=== PATIENT | female | born 1970 | race Caucasian/White ===

== ENCOUNTER 2020-01-30 10:59 | Emergency (ER) | payer BC ==
[2020-01-30 11:28] LABS: Protime INR 1.23
--- NOTE | 2020-01-30 11:28 | RAD REPORT ---
EXAM DESCRIPTION: CT - Ct Stroke Brain Wo Cont - 01/30/2020 11:13 am CLINICAL HISTORY: WEAKNESS, acute onset Additional provided history indicated recent hospitalization for intracranial bleed. COMPARISON: No comparisons TECHNIQUE: Axial 5 millimeter thick images of the head were obtained without IV contrast. All CT scans are performed using dose optimization technique as appropriate and may include automated exposure control or mA/KV adjustment according to patient size. FINDINGS: No intracranial hemorrhage, mass, or cerebral edema. No acute infarction identifiable. No cortical edema or sulcal effacement. Ventricles are normal. Physiologic calcifications are present. G ray matter-white matter differentiation is preserved.No globe or orbital content abnormality. The additional provided history of recent intracranial bleed is uncertain. There is no remnant intrac ranial hemorrhage in the brain parenchyma or adjacent to dura. Visualized portions of the mastoid air cells, paranasal sinuses, and orbits are unremarkable. The examination was only initially available in the exception folder which precludes immediate dictat ion. Images were reviewed at that time and findings telephoned to the referring physician 11:06 a.m.. IMPRESSION: No CT evidence of acute intracranial process.
[2020-01-30 11:32] LABS: Absolute Lymphocytes (CBC) 5.2 K/uL (0.7-4.9); Basophils % 1.1 % (0-1.3); Hematocrit 33.4 % (36.0-45.0); Lymphocytes % 51.2 % (15.3-44.8); MPV 7.7 fL (7.6-11.3); RBC Red Blood Cell Count 3.94 M/uL (3.86-4.86)
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
[2020-01-30 11:53] LABS: ALT/SGPT 28 U/L (12-78); AST/SGOT 32 U/L (15-37); Albumin 2.5 g/dL (3.4-5.0); Alkaline Phosphatase 121 U/L (45-117); BUN Blood Urea Nitrogen 11 mg/dL (7-18); Bicarbonate 27 mmol/L (21-32); Bilirubin Direct 0.1 mg/dL (0-0.2); Bilirubin Total 0.4 mg/dL (0.2-1.0); Glucose Level 86 mg/dL (74-106); Potassium 4.4 mmol/L (3.5-5.1); Protein, Total 6.9 g/dL (6.4-8.2); Sodium Level 135 mmol/L (136-145); Troponin (Emerg Dept Use Only) < 0.02 ng/mL (0.0-0.045)
[2020-01-30 12:23] LABS: Anisocytosis SLIGHT; Blood Morphology Comment NOTED (NOT SEEN); Ovalocytes 1+; Platelet Estimate ADEQ
--- NOTE | 2020-01-30 12:34 | RAD REPORT ---
EXAM DESCRIPTION: RAD - Chest Single View - 01/30/2020 12:13 pm CLINICAL HISTORY: CHEST PAIN, code stroke chest film COMPARISON: January 2008 TECHNIQUE: AP portable chest image was obtained 01/30/2020 12:13 pm . FINDINGS: Lung volumes are very low and there is motion degradation. Right lung field is likely the clear when adjusting for the limitations. Retrocardiac left base shows increased opacification in lef t hemidiaphragm is mostly obscured. Central vasculature and lung markings are prominent. Heart size w ithin normal limits for exam limitations. No measurable pleural effusion and no pneumothorax. No acut e bony abnormality seen. No acute aortic findings suspected. IMPRESSION: Significantly limited chest examination. Infectious or aspiration pneumonia in the left base is suspected.
[2020-01-30 13:13] VITALS: TEMP 98.5; O2SAT 96
[2020-01-30 13:20] VITALS: BP 101/72
== END 2020-01-30 12:22 | disposition short-term general hospital (02) ==
LOC: ER 10:59
DX: I63.9 Cerebral infarction, unspecified (principal); R29.714 NIHSS score 14; Z98.84 Bariatric surgery status
CPT/HCPCS: 36415; 70450; 71045; 80048; 80076; 82947; 83735; 84484; 85025; 85610; 85730; 93005; 99291